=== PATIENT | female | born 1970 | race Hispanic/Latino ===

== ENCOUNTER 2023-05-17 17:22 | Emergency (ER) | payer OTHER ==
[2023-05-17] MEDS ORDERED: Lidocaine 1% w/Epinephrine 1:100K 20 ML VIAL ONE (17:52)
[2023-05-17] MEDS ORDERED: Bupivacaine 0.25% 10 ML VIAL ONE (17:52)
[2023-05-17] MEDS ORDERED: Boostrix 0.5 ML (Tdap) VIAL (>/=7 yrs of age) ONE (20:32)
[2023-05-17] MEDS ORDERED: Bacitracin 1 PK ONE (21:59)
== END 2023-05-17 22:33 | disposition home or self-care (01) ==
LOC: ERS 17:22
DX: S61.215A Laceration without foreign body of left ring finger without damage to nail, initial encounter (principal); R20.2 Paresthesia of skin; W23.1XXA Caught, crushed, jammed, or pinched between stationary objects, initial encounter; Z23 Encounter for immunization
CPT/HCPCS: 12002; 90471; 90715; S0020